=== PATIENT | female | born 1980 | race Caucasian/White ===

== ENCOUNTER 2024-10-12 15:41 | Emergency (ER) | payer SELFPAY ==
[~2024-10-12] VITALS: Ht 165.1 cm; Wt 65.0 kg
[2024-10-12 16:07] VITALS: O2SAT 100
[2024-10-12 16:49] VITALS: TEMP 36.83628
[2024-10-12] MEDS: SODIUM CHLORIDE 0.9% 1,000 ML IV ONE (18:17)
[2024-10-12] MEDS: ONDANSETRON HCL 4MG/2ML INJ IV STA (18:17)
[2024-10-12 18:21] LABS: BASOPHILS % 0.6 % (0.0-2.0); EOSINOPHILS % 0.4 % (0.0-5.0); HEMATOCRIT. 41.3 % (36.0-48.0); HEMOGLOBIN. 13.4 g/dL (12.0-16.0); LYMPHOCYTES % 12.2 % (20.0-50.0); MEAN CORPUSCULAR HEMOGLOBIN 30.1 pg (28.0-32.0); MEAN CORPUSCULAR HGB CONC 32.6 g/dL (31.0-37.0); MEAN CORPUSCULAR VOLUME 92.3 fL (81.0-99.0); MEAN PLATELET VOLUME 8.4 fl (7.4-10.4); MONOCYTES % 4.2 % (2.0-8.0); NEUTROPHILS % 82.6 % (40.0-76.0); PLATELET 262 x1000/uL (130-400); RED BLOOD CELL COUNT 4.47 mill/uL (4.2-5.4); RED CELL DISTRIBUTION WIDTH 13.7 % (11.6-14.6); WHITE BLOOD COUNT 9.6 x1000/uL (4.5-11.0)
[2024-10-12 18:26] LABS: CHLORIDE 106 mEq/L (98-107); POTASSIUM 3.5 mEq/L (3.5-5.1); SODIUM 139 mEq/L (136-145)
[2024-10-12 18:27] LABS: CALCIUM 9.3 mg/dL (8.7-10.4); CARBON DIOXIDE 26 mEq/L (21-32)
[2024-10-12 18:32] LABS: CREATININE 0.8 mg/dL (0.6-1.0); GLUCOSE 150 mg/dL (70-105); UREA NITROGEN BLOOD 10 mg/dL (9-23)
[2024-10-12 19:30] VITALS: BP 123/75; PULSE 87; RESP 16; O2SAT 99
== END 2024-10-12 20:09 | disposition home or self-care (01) ==
LOC: ER 15:41
DX: R55 Syncope and collapse (principal)
CPT/HCPCS: 99285; 96374; 70450; 71045; 96361; 80048; 85025; 36415; J2405; J7030